=== PATIENT | female | born 2000 | race Caucasian/White ===

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

== ENCOUNTER 2024-07-02 09:47 | Emergency (ER) | payer BC, OTHER ==
[~2024-07-02] VITALS: Ht 167.6 cm; Wt 124.0 kg
[2024-07-02 09:58] VITALS: BP 130/95; PULSE 87; RESP 20; TEMP 36.7; O2SAT 100
[2024-07-02] MEDS: LORAZEPAM 1MG TABLET PO ONE (10:39)
[2024-07-02 10:56] LABS: BASOPHILS % 0.4 % (0.0-2.0); EOSINOPHILS % 0.3 % (0.0-5.0); HEMATOCRIT. 42.9 % (36.0-48.0); LYMPHOCYTES % 22.9 % (20.0-50.0); MEAN CORPUSCULAR HEMOGLOBIN 27.7 pg (28.0-32.0); MEAN CORPUSCULAR HGB CONC 32.7 g/dL (31.0-37.0); MEAN CORPUSCULAR VOLUME 84.8 fL (81.0-99.0); MEAN PLATELET VOLUME 7.8 fl (7.4-10.4); MONOCYTES % 5.7 % (2.0-8.0); NEUTROPHILS % 70.7 % (40.0-76.0); PLATELET 293 x1000/uL (130-400); RED BLOOD CELL COUNT 5.07 mill/uL (4.2-5.4); RED CELL DISTRIBUTION WIDTH 14.1 % (11.6-14.6)
[2024-07-02 11:11] LABS: HCG SCREEN NEGATIVE
[2024-07-02 11:12] LABS: CARBON DIOXIDE 27 mEq/L (21-32); CHLORIDE 107 mEq/L (98-107); POTASSIUM 3.2 mEq/L (3.5-5.1); SODIUM 142 mEq/L (136-145)
[2024-07-02 11:13] LABS: CALCIUM 9.5 mg/dL (8.7-10.4)
[2024-07-02 11:18] LABS: CREATININE 0.7 mg/dL (0.6-1.0); GLUCOSE 87 mg/dL (70-105); UREA NITROGEN BLOOD 7 mg/dL (9-23)
[2024-07-02 11:19] LABS: TROPONIN I HIGH SENSITIVITY < 4 ng/L (3.0-34)
[2024-07-02] MEDS ORDERED: HYDR-459 MT (11:29)
== END 2024-07-02 11:33 | disposition home or self-care (01) ==
LOC: ER 09:47
DX: F41.1 Generalized anxiety disorder (principal); Z68.41 Body mass index [BMI] 40.0-44.9, adult
CPT/HCPCS: 36415; 71045; 80048; 84484; 84703; 85025; 93005; 99285